=== PATIENT | male | born 1960 | race Caucasian/White ===

== ENCOUNTER 2017-01-17 07:20 | Emergency (ER) | payer MEDICAID ==
[~2017-01-17] VITALS: Ht 185.4 cm; Wt 88.6 kg
[2017-01-17 07:48] VITALS: BP 140/94
[2017-01-17] MEDS ORDERED: KETOROLAC TROMETHAMINE 60 MG/2 ML VIAL IM ONE (08:15)
== END 2017-01-17 08:28 | disposition home or self-care (01) ==
LOC: EMS 07:21
DX: M54.5 Low back pain (principal); M51.36 Other intervertebral disc degeneration, lumbar region; F17.210 Nicotine dependence, cigarettes, uncomplicated; F12.90 Cannabis use, unspecified, uncomplicated
CPT/HCPCS: 96372; 99283; J1885

== ENCOUNTER 2017-02-02 07:10 | Emergency (ER) | payer MEDICAID ==
[~2017-02-02] VITALS: Ht 185.4 cm; Wt 90.9 kg
[2017-02-02 09:11] LABS: INFLUENZA TYPE A NEGATIVE FOR TYPE A (NEGATIVE); INFLUENZA TYPE B NEGATIVE FOR TYPE B (NEGATIVE)
[2017-02-02] MEDS ORDERED: IBUPROFEN 800 MG TABLET PO ONE (09:45)
[2017-02-02 10:09] VITALS: BP 138/56
== END 2017-02-02 10:25 | disposition home or self-care (01) ==
LOC: EMS 07:10
DX: J11.1 Influenza due to unidentified influenza virus with other respiratory manifestations (principal); J02.9 Acute pharyngitis, unspecified; F17.210 Nicotine dependence, cigarettes, uncomplicated; F12.90 Cannabis use, unspecified, uncomplicated
CPT/HCPCS: 87804; 99284

== ENCOUNTER 2017-06-22 20:28 | Emergency (ER) | payer MEDICAID ==
[~2017-06-22] VITALS: Ht 185.4 cm; Wt 95.0 kg
[2017-06-22] MEDS ORDERED: PERCT10 PO (21:32)
[2017-06-22] MEDS ORDERED: LIDOCAINE HCL 5% TRANSDERMAL PATCH TD ONE (22:00)
[2017-06-22] MEDS ORDERED: KETOROLAC TROMETHAMINE 30 MG/ML VIAL IM ONE (22:00)
[2017-06-22 22:31] VITALS: BP 137/82
== END 2017-06-22 22:32 | disposition home or self-care (01) ==
LOC: EMS 20:29
DX: M54.5 Low back pain (principal); F17.210 Nicotine dependence, cigarettes, uncomplicated; Z79.899 Other long term (current) drug therapy
CPT/HCPCS: 96372; 99283; J1885

== ENCOUNTER 2019-01-29 10:15 | Emergency (ER) | payer MEDICAID ==
[~2019-01-29] VITALS: Ht 185.4 cm; Wt 104.5 kg
[~2019-01-29 10:15] MED LIST: OXYC-601 PO
[2019-01-29] MEDS ORDERED: OMEPRAZOLE 20 MG CAPSULE PO ONE (12:30)
[2019-01-29 13:20] VITALS: BP 130/84
== END 2019-01-29 13:31 | disposition home or self-care (01) ==
LOC: EMS 10:19
DX: K21.9 Gastro-esophageal reflux disease without esophagitis (principal); F17.210 Nicotine dependence, cigarettes, uncomplicated; G89.29 Other chronic pain; Z79.899 Other long term (current) drug therapy
CPT/HCPCS: 99406